=== PATIENT | female | born 1980 | race Caucasian/White ===

== ENCOUNTER → 2019-08-25 | Outpatient (CLI) | payer OTHER ==
--- NOTE | 2019-08-31 11:33 | PFR/MVV ---
[facility] [place] [address] PULMONARY FUNCTION MVV/REPORT Name: MITUL SUMMERS Room #: REG [facility].John.#: [id number] Admission: 08/25/19 Attend Phys: BRIAN Hastings Discharge: Date of : 80 Report #: [id number] THIS REPORT FOR: //name// >> SPIROMETRY: (BTPS) Height: 63 in cm Weight: 166 lbs kg Exam Date: 08/25/19 PRE-RX POST-RX PRED BEST %PRED BEST %PRED %CHG FVC LITERS . 3.46 . 3.90 . 113 . 3.90 . 113 . -0 FEV1 LITERS . 2.70 . 3.12 . 116 . 3.31 . 122 . 6 FEV1/FVC % . 77 . 80 . 103 . 85 . 110 . 6 SWF67-79% L/Sec . 3.16 . 3.16 . 100 . 4.03 . 128 . 28 PEF L/SEC . 6.13 . 6.14 . 100 . 7.24 . 118 . 18 FEF50/FIF50 UNITLESS . <1.00 . 1.86 . . 1.92 . . 3 MVV L/Min . 108 . 60 . 56 f 1/Min . . . >> LUNG VOLUMES: (BTPS) PRE-RX POST-RX PRED AVG %PRED AVG %PRED %CHG VC Liters . 3.46 . 3.90 . 113 . . . TLC Liters . 4.86 . 4.83 . 99 . . . RV Liters . 1.57 . 0.92 . 59 . . . RV/TLC % . 32 . 19 . 60 . . . FRC PL Liters . 2.49 . 1.65 . 67 . . . FRC N2 Liters . 2.49 . . . . . ERV Liters . 1.13 . 0.73 . 65 . . . IC Liters . 2.26 . 3.14 . 139 . . . >> DIFFUSION: DLCO ml/Min/mmHg . 23.6 . 20.8 . 88 . . . DL Leslie ml/Min/mmHg . 23.6 . 20.8 . 88 . . . DLCO/VA ml/Min/mmHg . 4.35 . 4.65 . 107 . . . VA Liters . . 4.47 . . . . COMMENTS: COMMENTS: >> RESISTANCE: [facility] [address] [place] [address] PULMONARY FUNCTION MVV/REPORT Name: MITUL SUMMERS Room #: REG [facility].John.#: [id number] Admission: 08/25/19 Attend Phys: BRIAN Hastings Discharge: Date of : 80 Report #: [id number] PRE-RX PRED AVG %PRED Raw Total cmH20/L/Sec . . 2.27 . Raw Insp cmH20/L/Sec . . 0.97 . Raw Exp cmH20/L/Sec . . 3.92 . Raw cmH20/L/Sec . 1.56 . 1.80 . 116 Gaw L/Sec/cmH20 . 0.596 . 0.555 . 93 sRaw cmH20 Sec . 3.87 . 5.77 . 149 sGaw l/cmH20 Sec . 0.258 . 0.173 . 67 Vtq Liters . . 3.20 . # = OUTSIDE 95% CONFIDENCE INTERVAL CALIBRATION: PRED: 3.00 ACTUAL: EXP 3.01 INSP 3.02 [facility]-[id number] [facility]-05 N-[id number] >> INTERPRETATION/IMPRESSION: CC: Mary Ann Tran DATE OF SERVICE: 08/25/2019 PULMONARY FUNCTION STUDIES SPIROMETRY: FEV1 is 3.12 liters (116%), FVC is 3.90 liters (113%), FEV1/FVC ratio is 80%. Postbronchodilator therapy is with no significant change. LUNG VOLUMES: Total lung capacity is 4.83 liters (99%). RV is 0.92 (59%). DLCO 88%. IMPRESSION: Pulmonary function studies are consistent with normal pulmonary function. <ELECTRONICALLY SIGNED> By: Morris George MD 08/31/19 1133 Morris George MD /nt
== END ==
LOC: PUL 10:34
DX: R06.09 Other forms of dyspnea (principal)

== ENCOUNTER → 2020-01-25 | Outpatient (CLI) | payer OTHER | LOC: LAB 12:26 | PROVIDERS: ATTEND Nurse Practitioner | DX: R05 Cough (principal); R50.9 Fever, unspecified; R11.0 Nausea; R19.7 Diarrhea, unspecified; Z20.828 Contact with and (suspected) exposure to other viral communicable diseases ==

== ENCOUNTER → 2020-03-06 | Outpatient (CLI) | payer OTHER ==
[2020-03-06 13:06] LABS: CALCIUM 8.4 mg/dL (8.5-10.1); CREATININE 0.9 mg/dL (0.6-1.0); POTASSIUM 3.7 mmol/L (3.5-5.1); TOTAL BILIRUBIN 0.2 mg/dL (0.2-1.0); TOTAL PROTEIN 6.7 g/dL (6.4-8.2)
[2020-03-07 02:06] LABS: COMPLEMENT-C3 157 mg/dL (82-167); COMPLEMENT-C4 28 mg/dL (14-44)
[2020-03-08 10:07] LABS: ANTI-DNA SCREEN 2 IU/mL (0-9)
== END ==
LOC: LABMALL 12:11
PROVIDERS: ATTEND Internal Medicine Rheumatology
DX: M32.9 Systemic lupus erythematosus, unspecified (principal)

== ENCOUNTER → 2020-06-19 | Outpatient (CLI) | payer OTHER | LOC: LAB 09:00 | PROVIDERS: ATTEND Anesthesiology | DX: Z01.812 Encounter for preprocedural laboratory examination (principal); Z20.828 Contact with and (suspected) exposure to other viral communicable diseases ==

== ENCOUNTER → 2020-10-31 | Outpatient (CLI) | payer OTHER ==
[2020-10-31 09:24] LABS: URINE BILIRUBIN NEGATIVE (Negative); URINE BLOOD NEGATIVE (Negative); URINE CLARITY CLEAR; URINE COLOR YELLOW; URINE GLUCOSE-RANDOM* NEGATIVE (Negative); URINE KETONES NEGATIVE (Negative); URINE LEUKOCYTES-REFLEX TRACE (Negative); URINE NITRITE-REFLEX NEGATIVE (Negative); URINE PROTEIN (DIPSTICK) NEGATIVE (Negative); URINE SPECIFIC GRAVITY 1.025 (1.005-1.035); URINE UROBILINOGEN 0.2 E.U./dl (0.2-1.0)
[2020-10-31 09:26] LABS: ABSOLUTE NEUTROPHILS 3.6 thou/uL (1.4-8.2); BASOPHILS 1.1 % (0.0-2.0); EOSINOPHILS 1.7 % (0.0-3.0); HEMATOCRIT 39.2 % (37.0-47.0); HEMOGLOBIN 13.1 gm/dL (12.0-15.0); LYMPHOCYTES 23.3 % (24.0-44.0); MCH 27.6 pg (26.0-34.0); MCHC 33.5 g/dL (28.0-37.0); MCV 82.3 fL (80.0-100.0); MONOCYTES 7.5 % (1.0-8.0); PLATELET COUNT 283 thou/uL (150-400); POLYS 66.4 % (36.0-66.0); RBC 4.76 mil/uL (4.20-5.00); RDW 13.3 % (10.5-14.5); WBC 5.4 thou/uL (4.0-11.0)
[2020-10-31 09:43] LABS: ALBUMIN 3.1 g/dL (3.4-5.0); ANION GAP 8 mmol/L (7-16); BUN 16 mg/dL (7-18); CALCIUM 8.5 mg/dL (8.5-10.1); CHLORIDE 104 mmol/L (98-107); CHOLESTEROL 198 mg/dL (<200); CO2 28 mmol/L (21-32); CREATININE 1.1 mg/dL (0.6-1.0); GLUCOSE 95 mg/dL (74-106); HDL CHOLESTEROL 83 mg/dL (>40); LDL CHOLESTEROL 96 mg/dL (<100); POTASSIUM 3.7 mmol/L (3.5-5.1); SGOT 22 U/L (15-37); SGPT 25 U/L (30-65); SODIUM 140 mmol/L (136-145); TC:HDL 2.4 Ratio (Not establshd); TOTAL BILIRUBIN 0.3 mg/dL (0.2-1.0); TOTAL PROTEIN 7.2 g/dL (6.4-8.2); TRIGLYCERIDE 96 mg/dL (<150); VLDL 19 mg/dL (<40)
== END ==
LOC: LAB 08:56
PROVIDERS: ATTEND Nurse Practitioner
DX: Z00.00 Encounter for general adult medical examination without abnormal findings (principal)

== ENCOUNTER → 2020-12-19 | Outpatient (CLI) | payer OTHER ==
[2020-12-19 09:13] LABS: ABSOLUTE NEUTROPHILS 3.3 thou/uL (1.4-8.2); BASOPHILS 0.9 % (0.0-2.0); EOSINOPHILS 1.8 % (0.0-3.0); HEMOGLOBIN 13.6 gm/dL (12.0-15.0); LYMPHOCYTES 20.2 % (24.0-44.0); MCH 27.4 pg (26.0-34.0); MCHC 33.3 g/dL (28.0-37.0); MCV 82.3 fL (80.0-100.0); MONOCYTES 7.1 % (1.0-8.0); PLATELET COUNT 269 thou/uL (150-400); RBC 4.99 mil/uL (4.20-5.00); WBC 4.7 thou/uL (4.0-11.0)
[2020-12-19 09:26] LABS: ALBUMIN 3.2 g/dL (3.4-5.0); CALCIUM 8.6 mg/dL (8.5-10.1); CREATININE 1.1 mg/dL (0.6-1.0); POTASSIUM 3.9 mmol/L (3.5-5.1); TOTAL BILIRUBIN 0.4 mg/dL (0.2-1.0); TOTAL PROTEIN 7.3 g/dL (6.4-8.2)
[2020-12-19 17:06] LABS: COMPLEMENT-C3 178 mg/dL (82-167); COMPLEMENT-C4 30 mg/dL (12-38)
== END ==
LOC: LAB 08:35
PROVIDERS: ATTEND Internal Medicine Rheumatology
DX: E55.9 Vitamin D deficiency, unspecified (principal); M32.9 Systemic lupus erythematosus, unspecified

== ENCOUNTER 2021-07-02 09:32 | Emergency (ER) | payer OTHER ==
[~2021-07-02] VITALS: Ht 160 cm; Wt 81.7 kg
[2021-07-02 09:36] VITALS: BP 113/74
[2021-07-02] MEDS ORDERED: TESSALON PERLE100 MG PO (11:10)
[2021-07-02] MEDS ORDERED: ROBITUSSIN30 MG/5 ML PO (11:10)
[2021-07-02] MEDS ORDERED: MUCINEX600 MG PO (11:10)
== END 2021-07-02 11:10 | disposition home or self-care (01) ==
LOC: ER 09:32
PROVIDERS: Emergency Medicine
DX: U07.1 COVID-19 (principal); Z98.890 Other specified postprocedural states; Z88.8 Allergy status to other drugs, medicaments and biological substances

== ENCOUNTER → 2021-08-01 | Outpatient (CLI) | payer OTHER ==
[~2021-08-01] MED LIST: MUCINEX600 MG PO; ROBITUSSIN30 MG/5 ML PO; TESSALON PERLE100 MG PO
[2021-08-01 09:43] LABS: ABSOLUTE NEUTROPHILS 3.7 thou/uL (1.4-8.2); BASOPHILS 0.3 % (0.0-2.0); EOSINOPHILS 2.1 % (0.0-3.0); HEMATOCRIT 39.4 % (37.0-47.0); HEMOGLOBIN 13.1 gm/dL (12.0-15.0); LYMPHOCYTES 19.6 % (24.0-44.0); MCH 27.8 pg (26.0-34.0); MCHC 33.2 g/dL (28.0-37.0); MCV 83.7 fL (80.0-100.0); MONOCYTES 8.6 % (1.0-8.0); PLATELET COUNT 248 thou/uL (150-400); POLYS 69.4 % (36.0-66.0); RDW 13.3 % (10.5-14.5); WBC 5.3 thou/uL (4.0-11.0)
[2021-08-01 10:16] LABS: CREATININE 0.9 mg/dL (0.6-1.0); POTASSIUM 4.2 mmol/L (3.5-5.1); TOTAL BILIRUBIN 0.3 mg/dL (0.2-1.0); TOTAL PROTEIN 6.4 g/dL (6.4-8.2)
== END ==
LOC: LAB 08:42
PROVIDERS: ATTEND Internal Medicine Rheumatology
DX: M32.9 Systemic lupus erythematosus, unspecified (principal)